=== PATIENT | male | born 1955 | race Caucasian/White ===

== ENCOUNTER 2018-10-14 21:40 | Day surgery (SDC) | payer OTHER, BC ==
[2018-10-14 22:05] LABS: BASOPHILS % (AUTO) 0.3 %; EOSINOPHILS # (AUTO) 0.1 10^3/uL (0.0-0.7); EOSINOPHILS % (AUTO) 0.8 %; HGB - HEMOGLOBIN 13.9 g/dL (14.0-18.0); LYMPHOCYTES # (AUTO) 1.6 10^3/uL (1.5-3.5); LYMPHOCYTES % (AUTO) 12.5 %; MEAN CORPUSCULAR HEMOGLOBIN 32.8 pg (27.0-31.0); MEAN CORPUSCULAR HGB CONC 33.6 g/dL (32.0-36.0); MEAN CORPUSCULAR VOLUME 97.6 fL (80.0-94.0); MEAN PLATELET VOLUME 9.9 fL (7.4-11.4); MONOCYTES % (AUTO) 7.8 %; NEUTROPHILS # (AUTO) 10.1 10^3/uL (1.5-6.6); NEUTROPHILS % (AUTO) 78.1 %; PLT - PLATELET COUNT 173 10^3/uL (130-450); RED BLOOD COUNT 4.24 10^6/uL (4.70-6.10); RED CELL DISTRIBUTION WIDTH 11.7 % (12.0-15.0)
--- NOTE | 2018-10-14 22:17 | ED Physician Documentation ---
PD HPI ABD PAIN - Stated complaint Stated Complaint: ABD PX/CHILLS/FEVER - Chief complaint Chief Complaint: Abd Pain - History obtained from History obtained from: Patient - History of Present Illness Timing - onset: How many days ago (2) Timing - duration: Days (2) Timing - details: Gradual onset, Still present (Worsened this past day with more localization of the pain to the right lower quadrant associated with fevers chills and nausea. Prior to that had been feeling bloated and nauseous with poor appetite and mid abdominal just crampiness for a day or 2.) Quality: Cramping, Aching, Pain Location: Periumbilical, RLQ Radiation: No: Chest, Lower back, Right flank Improved by: Laying still, Position (flat) Worsened by: Eating, Moving, Position (lying on right), Palpation Associated symptoms: Fever, Nausea. No: Vomiting, Diarrhea, Constipation, Dysuria Similar symptoms before: Has not had sx before Review of Systems Constitutional: reports: Fever, Chills Nose: denies: Rhinorrhea / runny nose, Congestion Throat: denies: Sore throat Respiratory: denies: Cough GI: reports: Abdominal Pain, Nausea. denies: Vomiting, Constipation, Diarrhea, Bloody / black stool : denies: Dysuria, Frequency Skin: denies: Rash, Lesions Neurologic: reports: Generalized weakness. denies: Focal weakness, Numbness PD PAST MEDICAL HISTORY - Past Medical History Past Medical History: Yes Cardiovascular: High cholesterol - Past Surgical History Past Surgical History: Yes Ortho: Shoulder arthroplasty, Other - Present Medications Home Medications: Ambulatory Orders Medication Instructions Recorded Confirmed Simvastatin 10 mg PO DAILY 10/14/18 10/14/18 - Allergies Allergies/Adverse Reactions: Allergies Allergy/AdvReac Type Severity Reaction Status Date / Time No Known Drug Allergies Allergy Verified 10/14/18 21:46 - Social History Does the pt smoke?: No Smoking Status: Never smoker Does the pt drink ETOH?: Yes Does the pt have substance abuse?: No - Immunizations Immunizations are current?: Yes - POLST Patient has POLST: No PD ED PE NORMAL - Vitals Vital signs reviewed: Yes - General General: Alert and oriented X 3, Well developed/nourished - HEENT HEENT: Pharynx benign. No: Moist mucous membranes - Neck Neck: Supple, no meningeal sign, No adenopathy - Cardiac Cardiac: RRR, No murmur - Respiratory Respiratory: Clear bilaterally - Abdomen Abdomen: Soft, Non distended, No organomegaly, Other (Tender in the right lower quadrant with localized tenderness rebound and percussion tenderness. There is some referred tenderness to the right lower quadrant from the left and periumbilical areas. Upper abdomen is not tender. Bowel sounds are diminished. There is no distention. I do not feel any hernias.). No: Normal bowel sounds (diminished) - Male Male : Deferred - Rectal Rectal: Deferred - Back Back: No CVA TTP - Derm Derm: Normal color, Warm and dry - Extremities Extremities: No deformity, No tenderness to palpate - Neuro Neuro: Alert and oriented X 3, No motor deficit, Normal speech Results - Vitals Vitals: Vital Signs - 24 hr 10/14/18 21:43 Temperature 37.2 C Heart Rate 69 Respiratory 18 Rate Blood Pressure 119/62 O2 Saturation 99 Oxygen O2 Source Room air - Labs Labs: Laboratory Tests 10/14/18 10/14/18 10/14/18 22:00 22:00 22:07 WBC 13.0 H RBC 4.24 L Hgb 13.9 L Hct 41.4 L MCV 97.6 H MCH 32.8 H MCHC 33.6 RDW 11.7 L Plt Count 173 MPV 9.9 Neut # (Auto) 10.1 H Lymph # (Auto) 1.6 Riley # (Auto) 1.0 Eos # (Auto) 0.1 Baso # (Auto) 0.0 Absolute Nucleated RBC 0.00 Nucleated RBC % 0.0 Sodium 137 Potassium 4.0 Chloride 101 Carbon Dioxide 24 Anion Gap 12.0 BUN 13 Creatinine 0.8 Estimated GFR (MDRD) 98 Glucose 128 H Calcium 9.1 Total Bilirubin 1.1 H AST 31 ALT 26 Alkaline Phosphatase 61 Total Protein 7.3 Albumin 4.0 Globulin 3.3 Albumin/Globulin Ratio 1.2 Lipase 37 Urine Color YELLOW Urine Clarity CLEAR Urine pH 8.0 H Ur Specific [place] 1.010 Urine Protein NEGATIVE Urine Glucose (UA) NEGATIVE Urine Ketones NEGATIVE Urine Occult Blood NEGATIVE Urine Nitrite NEGATIVE Urine Bilirubin NEGATIVE Urine Urobilinogen 0.2 (NORMAL) Ur Leukocyte Esterase NEGATIVE Ur Microscopic Review NOT INDICATED Urine Culture Comments NOT INDICATED - Rads (name of study) abd/pelvis CT Radiology: Prelim report reviewed, EMP read contemporaneously (Swollen and thick walled appendix with surrounding inflammation and a contained appendicolith. No free fluid. No free air.), See rad report PD MEDICAL DECISION MAKING - ED course Complexity details: reviewed results (CT scan blood count are compatible with acute appendicitis.), considered differential (Symptoms and progression are consistent with appendicitis. However given his age with potential other diagnoses, we will do a CT scan to confirm. Meanwhile give him some IV fluids and antibiotics. Offer pain medicines.), d/w patient, d/w wireless consultant (Dr. Jones is on-call for surgery and will come in to see the patient) Departure - Departure Disposition: ED Transfer to [facility] Clinical Impression: Lower abdominal pain Acute appendicitis Qualifiers: Acute appendicitis type: with localized peritonitis Appendicitis gangrene presence: without gangrene Appendicitis perforation presence: without perfor ation Appendicitis abscess presence: without abscess Qualified Code(s): K35.30 - Acute appendicitis with localized peritonitis, without perforation or gangrene Condition: Stable Record reviewed to determine appropriate education?: Yes
[2018-10-14 22:18] LABS: BILIRUBIN,URINE NEGATIVE (NEGATIVE); GLUCOSE, URINE (UA) NEGATIVE (NEGATIVE); KETONES,URINE (UA) NEGATIVE (NEGATIVE); LEUKOCYTE ESTERASE, URINE NEGATIVE (NEGATIVE); NITRITE,URINE NEGATIVE (NEGATIVE); OCCULT BLOOD,URINE NEGATIVE (NEGATIVE); PROTEIN,URINE NEGATIVE (NEGATIVE); UROBILINOGEN,URINE 0.2 (NORMAL) E.U./dL (NORMAL)
[2018-10-14 22:19] LABS: ALBUMIN/GLOBULIN RATIO 1.2 (1.0-2.2); BILIRUBIN,TOTAL 1.1 mg/dL (0.2-1.0); CALCIUM 9.1 mg/dL (8.5-10.3); CREATININE 0.8 mg/dL (0.6-1.2); TOTAL PROTEIN 7.3 g/dL (6.7-8.2)
[2018-10-14 22:19] LABS: CLARITY,URINE CLEAR (CLEAR)
[2018-10-14] MEDS ORDERED: SODIUM CHLORIDE 0.9% 1,000 ML IV ONE ×2 (22:35→23:40)
[2018-10-14] MEDS ORDERED: MORPHINE 2 MG/ML CARPUJECT IVP STA (22:35)
[2018-10-14] MEDS ORDERED: IOVERSOL 320 100 ML VIAL IVP ONE ×2 (22:51→22:58)
[2018-10-14] MEDS ORDERED: AMPICILLIN/SULBACTAM 3 GM in SODIUM CHLORIDE 0.9% MINIBAG 100 ML IV STA (23:13)
--- NOTE | 2018-10-14 23:22 | CT Report ---
Reason: RLQ pain and fever Procedure Date: 10/14/2018 Accession Number: [id number] / [id number] Procedure: CT - Abdomen/Pelvis W CPT Code: FULL RESULT: EXAM: CT ABDOMEN AND PELVIS EXAM DATE: 10/14/2018 10:56 PM. CLINICAL HISTORY: RLQ pain and fever. COMPARISONS: None. TECHNIQUE: Routine helical CT imaging was performed through the abdomen and pelvis. IV contrast: OPTI 320 100ML. Enteric contrast: No. Reconstructions: Coronal and sagittal. In accordance with CT protocol optimization, one or more of the following dose reduction techniques were utilized for this exam: automated exposure control, adjustment of mA and/or KV based on patient size, or use of iterative reconstructive technique. FINDINGS: Lung Bases: There are 2 calcified granulomas at the left lung base and there is some interstitial changes at the left lung base. Liver: Normal. No masses. Gallbladder/Bile Ducts: Unremarkable. Spleen: Normal. Pancreas: Normal. Adrenal Glands: There is a low attenuating right adrenal gland nodule measuring 17 mm most compatible with an adrenal adenoma. In addition, there is a small low attenuating lesion in the peripheral aspect of the left adrenal gland measuring 9 mm also most compatible with an adenoma. Kidneys: Normal. No masses or hydronephrosis. Peritoneal Cavity/Bowel: Normal. No free fluid, free air or adenopathy. No masses or acute inflammatory process. The appendix is inflamed. The gonzales are hyperemic. The diameter measures 12 mm. There is an appendicolith. There is stranding of the fat around the appendix. There are no extraluminal fluid collections. The remaining colon is grossly unremarkable. Pelvic Organs: Normal. The bladder and visualized pelvic organs are within normal limits. Vasculature: No aneurysms or other significant abnormality. Bones: No significant abnormality. Other: None. IMPRESSION: 1. Findings compatible with acute appendicitis. 2. Bilateral adrenal nodules most compatible with adrenal adenomas. RADIA
[2018-10-15] MEDS ORDERED: MIDAZOLAM 2 MG/2 ML VIAL IVP ONE (00:01)
[2018-10-15] MEDS ORDERED: KETOROLAC 30 MG/ML VIAL IVP ONE ×2 (00:01→07:25)
[2018-10-15] MEDS ORDERED: ePHEDrine 50 MG/ML VIAL IVP ONE (00:01)
[2018-10-15] MEDS ORDERED: PROPOFOL 200 MG/20 ML VIAL IVP ONE ×2 (00:01→07:25)
[2018-10-15] MEDS ORDERED: fentaNYL 100 MCG/2 ML VIAL IVP ONE ×2 (00:01→07:25)
[2018-10-15] MEDS ORDERED: DEXAMETHASONE 4 MG/ML VIAL IVP ONE ×2 (00:01→07:25)
[2018-10-15] MEDS ORDERED: HYDROmorphone 1 MG/ML CARPUJECT IVP STA (00:29)
[2018-10-15] MEDS ORDERED: ONDANSETRON 4 MG/2 ML VIAL IVP STA (00:29)
--- NOTE | 2018-10-15 00:40 | CONSULTATION NOTE ---
Referring Provider Name of Referring Provider:: Dr. Christiano Dixon Consult Date: 10/14/18 Chief Complaint - Chief Complaint Chief Complaint: Right lower quadrant pain consistent with acute appendicitis History of Present Illness - Admitted From Admitted From:: Not admittedoutpatient - History Obtained From Records Reviewed: Yes History obtained from: Patient Exam Limitations: None - History of Present Illness HPI Comment/Other: Dr. Christiano Dixon called me on consultation on this very pleasant 63-year-old gentleman who has slightly less than 2-day history of abdominal pain accompanied by nausea and some vomiting that worsened and prompted his arrival at [facility]'s emergency department. The pain localized to the right lower quadrant and the patient states he going over bumps worsens the pain. Lying still seems to help. The patient has never had these symptoms previously. Currently he is thirsty but not terribly hungry. History - Past Medical History Cardiovascular: reports: High cholesterol MRSA Hx?: No - Past Surgical History Ortho: reports: Shoulder arthroplasty, Other Other past surgical history: Spinal surgery as well and surgery on his left hand when he was 19 years old (saw accident) - POLST Patient has POLST: No Meds/Allgy - Home Medications Home Medications: Ambulatory Orders Medication Instructions Recorded Confirmed Simvastatin 10 mg PO DAILY 10/14/18 10/14/18 - Allergies Allergies/Adverse Reactions: Allergies Allergy/AdvReac Type Severity Reaction Status Date / Time No Known Drug Allergies Allergy Verified 10/14/18 21:46 Review of Systems - Constitutional Constitutional: reports: Other (None. Works out on the elliptical and does not do free weights.) - Eyes Eyes: reports: Other (None.) - Ears, Nose & Throat Ears, Nose & Throat: reports: Other (None.) - Cardiovascular Cariovascular: reports: Other (None.) - Respiratory Respiratory: reports: Other (None.) - Genitourinary Genitourinary: reports: Other (None.) - Musculoskeletal Musculoskeletal: reports: Back pain (Some continued pain despite the surgery. Initially it was better and now it seems that the pain is coming back.) - Integumentary Integumentary: reports: Other (None.) - Neurological Neurological: reports: Other (None.) - Psychiatric Psychiatric: reports: Other (None.) - Endocrine Endocrine: reports: Other (None.) - Hematologic/Lymphatic Hematologic/Lymphatic: reports: Other (None.) Exam - Vital Signs Reviewed Vital Signs: Yes Vital Signs: Vital Signs x48h Temp Pulse Resp BP Pulse Ox 10/14/18 21:43 37.2 C 69 18 119/62 99 - Physical Exam General Appearance: positive: No acute distress Eyes Bilateral: positive: No lid inflammation, Conjunctivae nml ENT: positive: Dry mucous membranes Neck: positive: Trachea midline Respiratory: positive: Chest non-tender, No respiratory distress, Breath sounds nml Cardiovascular: positive: Regular rate & rhythm, No murmur, No gallop Abdomen: positive: No distention, Tenderness (At McBurney's point.), Guarding, Abnml bowel sounds (Slightly decreased.) Skin: positive: Color nml, Warm, Dry Extremities: positive: Non-tender, Nml appearance, No pedal edema, Other (Ambulated to the bathroom without difficulty other than the right lower quadrant pain.) Neurologic/Psychiatric: positive: Oriented x3, Motor nml, Sensation nml, Mood/affect nml Conclusion/Plan - Diagnosis Diagnosis: Acute appendicitis - Plan Plan: Laparoscopic appendectomy, possible open appendectomy. The indications, procedure, alternatives including no surgery, possible risks including infection (deep or superficial), bleeding requiring transfusion (with all of its risks), and were fully explained to the patient and all questions answered. I also explained the pathophysiology. I explained that following the surgery I did not want him lifting anything over 15 pounds for 6 weeks to allow for optimal healing and to decrease the likelihood that a hernia would occur. All questions were fully answered. Verbal and written consent was obtained. The patient, in preparation for surgery will be nothing by mouth, and receive 3.375 g of Zosyn with induction. I asked him to contact me with any surgical questions and his concerns and he stated that he would. I asked him to let me know if there is any way we can make his stay at [facility] more comfortable and he stated that he would let me know. The plan is to do this operation as an outpatient procedure and to discharge him home following the procedure. 45 minutes of [id number] time spent with the patient, over 80% in discussion and coordination of his care - Lab Results Lab results reviewed: Yes Fish Bones: 10/14/18 22:00 10/14/18 22:00 - Diagnostic Imaging Results Diagnostic Imaging Results: positive: Final report reviewed, Read independently
[2018-10-15] MEDS ORDERED: SODIUM CHLORIDE 0.9% 1,000 ML IV ONE (01:41)
[2018-10-15] MEDS ORDERED: PIPERACILLIN/TAZOBACTAM 3.375 GM in SODIUM CHLORIDE 0.9% MINIBAG 100 ML IV STA (05:58)
--- NOTE | 2018-10-15 06:08 | ANESTHESIA ---
Pre-Anesthesia VS, & Labs - Diagnosis Diagnosis Acute appendicitis - Procedure Lap. Appy Vital Signs: Temp Pulse Resp BP Pulse Ox 37.2 C 62 16 99/61 99 10/14/18 21:43 10/15/18 06:00 10/15/18 06:00 10/15/18 06:00 10/15/18 06:00 Height 6 ft 2 in Weight (kg) 97.522 kg Body Mass Index 27.6 - NPO >8 hours - Lab Results Current Lab Results: Laboratory Tests 10/14/18 22:00: Sodium 137, Potassium 4.0, Chloride 101, Carbon Dioxide 24, Anion Gap 12.0, BUN 13, Creatinine 0.8, Estimated GFR (MDRD) 98, Glucose 128 H, Calcium 9.1, Total Bilirubin 1.1 H, AST 31, ALT 26, Alkaline Phosphatase 61, Total Protein 7.3, Albumin 4.0, Globulin 3.3, Albumin/Globulin Ratio 1.2, Lipase 37 10/14/18 22:00: WBC 13.0 H, RBC 4.24 L, Hgb 13.9 L, Hct 41.4 L, MCV 97.6 H, MCH 32.8 H, MCHC 33.6, RDW 11.7 L, Plt Count 173, MPV 9.9, Neut # (Auto) 10.1 H, Lymph # (Auto) 1.6, [place] # (Auto) 1.0, Eos # (Auto) 0.1, Baso # (Auto) 0.0, Absolute Nucleated RBC 0.00, Nucleated RBC % 0.0 Fish Bones: 10/14/18 22:00 10/14/18 22:00 Home Medications and Allergies Home Medications: Ambulatory Orders Simvastatin 10 mg PO DAILY 10/14/18 Active Medications Piperacillin Sod/Tazobactam (Sod 3.375 gm/ Sodium Chloride) 100 mls @ 200 mls/hr IV ONCE STA Stop: 10/15/18 06:27 Simvastatin 10 mg PO DAILY 10/14/18 Allergies/Adverse Reactions: Allergies Allergy/AdvReac Type Severity Reaction Status Date / Time No Known Drug Allergies Allergy Verified 10/14/18 21:46 Anes History & Medical History - Anesthetic History Anesthesia Complications: reports: No previous complications - Medical History Cardiovascular: reports: High cholesterol Pulmonary: reports: Sleep apnea, CPAP use Gastrointestinal: reports: None Urinary: reports: None Neuro: reports: None Musculoskeletal: reports: Chronic back pain Endocrine/Autoimmune: reports: None Blood Disorders: reports: None Smoking Status: Former smoker (quit 1995) Psychosocial: reports: No issues indicated - Surgical History Orthopedic: Shoulder arthroplasty, Other Other Past Surgical History: Spinal surgery as well and surgery on his left hand when he was 19 years old (saw accident) Exam General: Alert, Oriented x3, Cooperative, No acute distress Dental: WNL Mouth Openin Fingerbreadth Neck Mobility: Normal Mallampati classification: II Thyromental Distance: greater than 6 cm Respiratory: Lungs clear, Normal breath sounds, No respiratory distress, No accessory muscle use Cardiovascular: Regular rate, Normal S1, Normal S2, No murmurs Mental/Cognitive Status: Alert/Oriented X3, Normal for patient Plan Anesthesia Type: General Consent for Procedure(s) Verified and Reviewed: Yes Code Status: Attempt Resuscitation ASA classification: 2-Mild systemic disease Is this case an emergency?: No
[2018-10-15] MEDS ORDERED: BUPIVACAINE 0.5% PF 10 ML VIAL ONE (06:27)
[2018-10-15] MEDS ORDERED: LACTATED RINGERS 1,000 ML IV ONE ×2 (06:50→08:03)
[2018-10-15] MEDS ORDERED: BUPIVACAINE 0.5% PF 30 ML VIAL SUBQ ONE (07:16)
[2018-10-15] MEDS ORDERED: ONDANSETRON 4 MG/2 ML VIAL IVP ONE (07:25)
[2018-10-15] MEDS ORDERED: LIDOCAINE-MPF 2% 5 ML VIAL IM ONE (07:25)
[2018-10-15] MEDS ORDERED: ROCURONIUM 50 MG/5 ML VIAL IVP ONE (07:25)
[2018-10-15] MEDS ORDERED: NEOSTIGMINE 1 MG/1 ML 10 ML MDV IVP ONE (07:25)
[2018-10-15] MEDS ORDERED: ONDANSETRON 4 MG/2 ML VIAL IVP PRN (08:08)
[2018-10-15] MEDS ORDERED: HYDROmorphone 0.5 MG/0.5 ML SYRINGE IVP PRN (08:08)
[2018-10-15] MEDS ORDERED: HYDROcod/ACETAM 5/325 MG TABLET PO PRN (08:08)
--- NOTE | 2018-10-15 08:12 | OPERATIVE REPORT ---
Operative Report - General Procedure Date: 10/15/18 Planned Procedure: Laparoscopic appendectomy Pre-Op Diagnosis: Acute appendicitis Procedure Performed: Laparoscopic appendectomy Post Op Diagnosis: Acute appendicitis with purulence - Procedure Note Primary Surgeon: Christiano Villavicencio MD Anesthesia Provider: Arsenio Bertrand CRNA Anesthesia Technique: General ET tube, Local (30 mL of half percent Marcaine) IV Fluids (mL): 1,000 Estimated Blood Loss (mL): 10 Drain/Tube Type: Other (None.) Complications: None. - Other Other Information/Narrative: OPERATIVE DESCRIPTION/REPORT: After verbal and written informed consent was obtained detailing the risks of infection, bleeding requiring transfusion with its risks, and , and after I met with the patient confirming the surgery and the site of the surgery, the patient was brought to the operative suite and placed supine on the operating table. Great care was taken to avoid pressure points to prevent pressure necrosis or nerve injury. Monitoring devices were applied along with TEDs and pneumatic compressive stockings (to prevent DVT). The patient received preoperative antibiotics for surgical prophylaxis. Arsenio Bertrand CRNA sedated and anesthetized the patient for the entire procedure. The patient was prepped and draped in the usual sterile manner. With the patient draped my initials were clearly visible. A "time in" then confirmed that the patient was identified with 3 identifiers (name, date and medical record number), the history and physical was in the chart, the signed consent confirming the procedure was in the chart, the patient was in the correct position, the aforementioned prophylactic measures were in place or given, we had the correct personnel and equipment to complete the procedure and that anesthesia, surgery and nursing were given an opportunity to express any concerns. With the agreement of everyone in the room, we proceeded with the operation. A 2 cm incision umbilical incition was made and dissection down to the fascia was completed in a blunt and sharp manner. The fascia was then cleared of subcutaneous tissue using a tonsil clamp and a small incision was made in the fascia gaining entry into the abdomen without incident. A 12 mm blunt tipped balloon tipped Adrian port was placed into the abdomen and the balloon inflated to keep it in place. The pneumoperitoneum was then established using carbon dioxide insufflation to a steady state pressure of 15 mmHg. Two additional 5 mm ports were placed in the midline above and below the umbilicus. The patient was then rotated slightly to their left and slightly head down (Trendelenberg). A small adhesion was photographed and cut. The appendix was clearly identified and noted to be thickened and clearly consistent with acute appendicitis. The end of the appendix was grasped with a Prestige grasper and lifted anteriorly thus revealing the appendiceal mesentery. The mesentery was taken using sequential application of the Ligasure until the base of the appendix was visualized without any adherent tissue. The base of the appendix was then stapled and transected using a laparoscopic vascular stapler. Visualization of the staple line revealed absolutely no bleeding or leak of bowel contents. Photographs were taken. The appendix was then place into an endopouch for the remainder of the case. The patient was then rotated to lie flat. The fascia and skin were then injected with the 30 cc of % marcaine for pain control. The insufflation was released and the ports removed. With the removal of the umbilical port the Endopouch containing the appendix was also removed. The fascial defect was then approximated using 0-Vicryl suture in a simple interrupted manner taking care to bury the knots. The skin incisions were approximated with 4-0 Monocryl in a subcuticular fashion. The surgical prep was removed, the skin was prepped with benzoin and steristrips were applied. A dressing was applied. At this point a time out was performed that confirmed that all the counts were correct, the procedure that was performed, the blood loss, the urine output, the IV fluids administered, and the patients condition. Having tolerated the procedure well, the patient was subsequently extubated and taken to recovery room in good and stable condition. [employer] disclaimer: This document was created in part using voice recognition technology. Because of the inherent limitations of the system ([employer]'s [employer] Dictate user manual states that the licensee understands that speech recognition is a statistical process and that recognition errors are inherent in the process), occasional same sounding word substitutions and grammatical errors do occur and persist despite proofreading. Please read this document for context.
[2018-10-15 09:56] VITALS: BP 114/72
[2018-10-15] MEDS ORDERED: HYDROcod/ACETAM 5/325 MG TABLET ONE (10:16)
== END 2018-10-15 00:01 | disposition home or self-care (01) ==
LOC: ED 21:40 → SDS 10-15
PROVIDERS: ATTEND Surgery
PROC: 0DTJ4ZZ Resection of Appendix, Percutaneous Endoscopic Approach (ICD-10-PCS; principal; 2018-10-14)
DX: K35.32 Acute appendicitis with perforation, localized peritonitis, and gangrene, without abscess (principal); K66.0 Peritoneal adhesions (postprocedural) (postinfection); G47.30 Sleep apnea, unspecified; E78.00 Pure hypercholesterolemia, unspecified; Z79.899 Other long term (current) drug therapy; Z87.891 Personal history of nicotine dependence
CPT/HCPCS: 36415; 44970; 74177; 80053; 81003; 83690; 85025; 96361; 96365; 99284; 99285; A9270; J1170; J7120; Q9967; 81001; 87086